=== PATIENT | male | born 1995 | race Asian ===

== ENCOUNTER 2016-08-22 10:45 | Emergency (ER) | payer MEDICAID ==
[~2016-08-22] VITALS: Ht 175.3 cm; Wt 54.4 kg
[2016-08-22 11:00] VITALS: BP 138/91; PULSE 93; RESP 18; TEMP 97.9; O2SAT 100
--- NOTE | 2016-08-22 11:05 | NUR ---
Patient to ER bed 07 to gown for evaluation. Side rails up. Report given to Steven
--- NOTE | 2016-08-22 11:07 | NUR ---
Pt states having pain in near back molars of mouth after having wisdom teeth removed 4 days ago. Pt states trying to take prescribed pain meds but "vomits every time he takes them". No redness noted in throat and oral cavity. No other complaints noted.
--- NOTE | 2016-08-22 11:11 | NUR ---
Dr Guerrero at bedside examining patient
[2016-08-22] MEDS ORDERED: ONDANSETRON 4 MG ODT TAB PO ONE (11:15)
[2016-08-22] MEDS ORDERED: IBUPROFEN 600 MG TABLET PO ONE (11:15)
[2016-08-22 12:05] VITALS: BP 135/92; PULSE 89; RESP 16; TEMP 97.7; O2SAT 100
--- NOTE | 2016-08-22 12:05 | NUR ---
Patient given written and verbal discharge instructions and verbalizes understanding. ER MD discussed with patient the results and treatment provided. Patient in stable condition. ID arm band removed. Rx of Zofran given. Patient educated on pain management and to follow up with PMD. Pain Scale 0. Opportunity for questions provided and answered.
== END 2016-08-22 12:05 | disposition home or self-care (01) ==
LOC: SED 10:45
DX: K08.89 Other specified disorders of teeth and supporting structures (principal); R11.0 Nausea
CPT/HCPCS: 99283; Q0162